=== PATIENT | female | born 1995 | race Two or more races ===

== ENCOUNTER 2020-06-30 02:40 | Emergency (ER) | payer BC ==
[~2020-06-30] VITALS: Ht 157.5 cm; Wt 77.3 kg
[2020-06-30 03:14] LABS: BILIRUBIN,URINE NEGATIVE (NEG); CLARITY,URINE CLEAR; COLOR,URINE YELLOW; NITRITE,URINE NEGATIVE (NEG); PH,URINE 6.5 (<5.0-8.0); PROTEIN,URINE NEGATIVE (NEG-TRACE); UROBILINOGEN,URINE 0.2 mg/dL (0.2 mg/dL)
[2020-06-30 03:16] LABS: BASO # 0.1 x10^3/uL (0.0-0.2); BASO % 1 % (0-3); EOS # 0.2 x10^3/uL (0.0-0.7); EOS % 1 % (0-3); HEMATOCRIT 39.5 % (36.0-47.0); HEMOGLOBIN 13.6 g/dL (12.0-15.5); LYMPH # 1.7 x10^3/uL (1.0-4.8); LYMPH % 15 % (24-48); MEAN CORPUSCULAR HEMOGLOBIN 29 pg (25-35); MEAN CORPUSCULAR HGB CONC 34 g/dL (31-37); MEAN CORPUSCULAR VOLUME 83 fL (79-100); MONO # 0.7 x10^3/uL (0.0-1.1); MONO % 6 % (0-9); NEUT # 9.2 x10^3/uL (1.8-7.7); NEUT % 78 % (31-73); PLATELET COUNT 212 x10^3/uL (140-400); RED BLOOD COUNT 4.77 x10^6/uL (3.50-5.40); RED CELL DISTRIBUTION WIDTH 13.8 % (11.5-14.5); WHITE BLOOD COUNT 11.8 x10^3/uL (4.0-11.0)
--- NOTE | 2020-06-30 03:17 | ED.ADGEN ---
General Adult EDM: Chief Complaint: ABDOMINAL PAIN HPI: HPI: Patient is a 25 year old female coming in for epigastric abdominal pain that started yesterday morning about 10 AM (16 was 18 hours prior to arrival). Patient states that the pain is midline and sharp to burning pain that comes and goes. Is not changed with movement. Did take some Tylenol and Tums which did improve the pain little bit. Pain comes and goes and does not have any pain right now. Last episode was just prior to coming to the emergency department. She says that she had tried to lay down to rest but felt a burning sensation in her throat spit up little bit of "salty saliva". Denies any fevers, cough, chest pain. Has had several bowel movements a day without straining, not diarrhea. No changes in urination. Currently on her menstrual cycle. Denies any new medications, alcohol or tobacco use. Smokes marijuana monthly. Has a history of cholecystectomy. Allergic to Zosyn Review of Systems: Review of Systems: All other systems within normal limits except for as noted in the HPI Current Medications: Current Medications Medications (Trade) Dose Ordered Sig/Jayme Start Time Stop Time Status Last Admin Dose Admin Multi-Ingredient Mouthwash/Gargle (Gi Cocktail) 20 ml 1X ONCE 06/30/20 03:45 06/30/20 03:52 DC 06/30/20 03:47 20 ML Allergies: Allergies: Allergies Coded Allergies Type Severity Reaction Last Updated Verified piperacillin Allergy Intermediate Rash 06/30/20 Yes tazobactam Allergy Intermediate Rash 06/30/20 Yes Physical Exam: PE: Constitutional: Well developed, well nourished, no acute distress, non-toxic appearance. [] HENT: Normocephalic, atraumatic, bilateral external ears normal, nose normal. [] Eyes: PERRLA, conjunctiva normal, no discharge. [] Neck: No rigidity, supple, no stridor. [] Cardiovascular: Regular rate and rhythm, brisk cap refill [] Lungs & Thorax: Non labored symmetric respirations, no tachypnea or respiratory distress [] Abdomen: Soft, nondistended, mild epigastric tenderness without rebound or guarding. Negative Gallo sign, no lower abdominal tenderness. Skin: Warm, dry, no erythema, no rash. [] Back: Unremarkable Extremities: No deformities, range of motion grossly intact, no lower extremity edema [] Neurologic: Alert and oriented X 3, no focal deficits noted. [] Psychologic: Affect normal, judgement normal, mood normal. [] Current Patient Data: Labs: Laboratory Tests Test 06/30/20 02:47 06/30/20 02:51 06/30/20 03:00 Urine Collection Type Unknown Urine Color Yellow Urine Clarity Clear Urine pH 6.5 (<5.0-8.0) Urine Specific Russell 1.025 (1.000-1.030) Urine Protein Negative mg/dL (NEG-TRACE) Urine Glucose (UA) Negative mg/dL (NEG) Urine Ketones (Stick) Negative mg/dL (NEG) Urine Blood Moderate (NEG) Urine Nitrite Negative (NEG) Urine Bilirubin Negative (NEG) Urine Urobilinogen Dipstick 0.2 mg/dL (0.2 mg/dL) Urine Leukocyte Esterase Negative (NEG) Urine RBC 1-2 /HPF (0-2) Urine WBC Occ /HPF (0-4) Urine Squamous Epithelial Cells Few /LPF Urine Bacteria 0 /HPF (0-FEW) Urine Mucus Mod /LPF POC Urine HCG, Qualitative Hcg negative (Negative) White Blood Count 11.8 x10^3/uL (4.0-11.0) H Red Blood Count 4.77 x10^6/uL (3.50-5.40) Hemoglobin 13.6 g/dL (12.0-15.5) Hematocrit 39.5 % (36.0-47.0) Mean Corpuscular Volume 83 fL (79-100) Mean Corpuscular Hemoglobin 29 pg (25-35) Mean Corpuscular Hemoglobin Concent 34 g/dL (31-37) Red Cell Distribution Width 13.8 % (11.5-14.5) Platelet Count 212 x10^3/uL (140-400) Neutrophils (%) (Auto) 78 % (31-73) H Lymphocytes (%) (Auto) 15 % (24-48) L Monocytes (%) (Auto) 6 % (0-9) Eosinophils (%) (Auto) 1 % (0-3) Basophils (%) (Auto) 1 % (0-3) Neutrophils # (Auto) 9.2 x10^3/uL (1.8-7.7) H Lymphocytes # (Auto) 1.7 x10^3/uL (1.0-4.8) Monocytes # (Auto) 0.7 x10^3/uL (0.0-1.1) Eosinophils # (Auto) 0.2 x10^3/uL (0.0-0.7) Basophils # (Auto) 0.1 x10^3/uL (0.0-0.2) Sodium Level 142 mmol/L (136-145) Potassium Level 3.7 mmol/L (3.5-5.1) Chloride Level 105 mmol/L (98-107) Carbon Dioxide Level 27 mmol/L (21-32) Anion Gap 10 (6-14) Blood Urea Nitrogen 12 mg/dL (7-20) Creatinine 0.8 mg/dL (0.6-1.0) Estimated GFR (Cockcroft-Gault) 87.4 BUN/Creatinine Ratio 15 (6-20) Glucose Level 97 mg/dL (70-99) Lactic Acid Level 0.9 mmol/L (0.4-2.0) Calcium Level 9.5 mg/dL (8.5-10.1) Total Bilirubin 0.2 mg/dL (0.2-1.0) Aspartate Amino Transferase (AST) 14 U/L (15-37) L Alanine Aminotransferase (ALT) 41 U/L (14-59) Alkaline Phosphatase 86 U/L (46-116) Total Protein 7.9 g/dL (6.4-8.2) Albumin 3.9 g/dL (3.4-5.0) Albumin/Globulin Ratio 1.0 (1.0-1.7) Lipase 106 U/L (73-393) Laboratory Tests 06/30/20 03:00 Laboratory Tests 06/30/20 03:00 Vital Signs: Vital Signs Date Time Temp Pulse Resp B/P (MAP) Pulse Ox O2 Delivery O2 Flow Rate FiO2 06/30/20 03:52 78 18 132/75 (94) 98 Room Air 06/30/20 02:45 98.6 98.6 EKG: EKG: [] Heart Score: Risk Factors: Risk Factors: DM, Current or recent (<one month) smoker, HTN, HLP, family history of CAD, obesity. Risk Scores: Score 0 - 3: 2.5% MACE over next 6 weeks - Discharge Home Score 4 - 6: 20.3% MACE over next 6 weeks - Admit for Clinical Observation Score 7 - 10: 72.7% MACE over next 6 weeks - Early Invasive Strategies Radiology/Procedures: Radiology/Procedures: AP upright supine abdomen x-rays HISTORY: Upper abdominal pain. FINDINGS: Lung bases unremarkable. Mild lumbar scoliosis. No pneumoperitoneum. Cholecystectomy surgical clips. Mild volume of stool within the right-sided colon. Pelvic phleboliths. No dilated bowel loops or abnormal air-fluid levels of the bowel to suggest ileus or obstruction. Bones are unremarkable. IMPRESSION: No bowel obstruction evident. [] Course & Med Decision Making: Course & Med Decision Making Pertinent Labs and Imaging studies reviewed. (See chart for details) Benign abdominal exam and history suggestive of GERD. Patient states she was seen similar in urgent care and diagnosed the same. Symptoms improved after taking an acids. [] Dragon Disclaimer: Dragon Disclaimer: This electronic medical record was generated, in whole or in part, using a voice recognition dictation system. Departure Departure Impression: Primary Impression: Gastritis Disposition: 01 DC HOME SELF CARE/HOMELESS Condition: STABLE Patient Instructions: Gastritis, Adult Scripts Sucralfate (CARAFATE) 1 Gm Tablet 1 TAB PO TID for gastritis for 30 Days, #90 TAB 0 Refills Prov: SARAH BURKETT MD 06/30/20 Omeprazole (OMEPRAZOLE) 20 Mg Tablet. 1 TAB PO DAILY for antacid for 30 Days, #30 TAB 1 Refill Prov: SARAH BURKETT MD 06/30/20 SARAH BURKETT MD Jun 30, 2020 03:17
[2020-06-30 03:21] LABS: BACTERIA,URINE 0 /HPF (0-FEW); WBC,URINE OCC /HPF (0-4)
[2020-06-30 03:25] LABS: CALCIUM 9.5 mg/dL (8.5-10.1); CREATININE 0.8 mg/dL (0.6-1.0); GFR 87.4; POTASSIUM 3.7 mmol/L (3.5-5.1)
[2020-06-30 03:30] LABS: ALBUMIN 3.9 g/dL (3.4-5.0); TOTAL BILIRUBIN 0.2 mg/dL (0.2-1.0); TOTAL PROTEIN 7.9 g/dL (6.4-8.2)
[2020-06-30] MEDS ORDERED: LIDO:MAALOX 1:1 20 ML SINGLE DOSE. SWSW ONE (03:45)
--- NOTE | 2020-06-30 04:16 | RAD ---
AP upright supine abdomen x-rays HISTORY: Upper abdominal pain. FINDINGS: Lung bases unremarkable. Mild lumbar scoliosis. No pneumoperitoneum. Cholecystectomy surgic al clips. Mild volume of stool within the right-sided colon. Pelvic phleboliths. No dilated bowel loo ps or abnormal air-fluid levels of the bowel to suggest ileus or obstruction. Bones are unremarkable. IMPRESSION: No bowel obstruction evident. Electronically signed by: Donis Pillai MD (06/30/2020 4:14 AM) [facility]
[2020-06-30] MEDS ORDERED: OMEP20TA8 PO (04:43)
[2020-06-30] MEDS ORDERED: SUCR1TAB35 PO (04:43)
[2020-06-30 05:07] VITALS: BP 132/70
== END 2020-06-30 05:10 | disposition home or self-care (01) ==
LOC: ER 02:40
DX: K29.70 Gastritis, unspecified, without bleeding (principal); R10.13 Epigastric pain; R20.8 Other disturbances of skin sensation; Z88.1 Allergy status to other antibiotic agents; Z88.8 Allergy status to other drugs, medicaments and biological substances
CPT/HCPCS: 36415; 74021; 80053; 81001; 81025; 83605; 83690; 85025; 99285